=== PATIENT | female | born 1965 | race Caucasian/White ===

== ENCOUNTER 2017-08-25 15:20 | Emergency (ER) | payer SELFPAY ==
[~2017-08-25] VITALS: Ht 167.6 cm; Wt 43.0 kg
[2017-08-25] MEDS ORDERED: PERCOCET 5/31 TABLET PO (17:50)
[2017-08-25] MEDS ORDERED: MOTRIN600 MG PO (17:50)
[2017-08-25 17:57] VITALS: BP 144/77
== END 2017-08-25 17:58 | disposition home or self-care (01) ==
LOC: EXP 15:20 → EME 15:20 → EXP 17:58
DX: S40.011A Contusion of right shoulder, initial encounter (principal); W01.0XXA Fall on same level from slipping, tripping and stumbling without subsequent striking against object, initial encounter; F17.200 Nicotine dependence, unspecified, uncomplicated; Z87.39 Personal history of other diseases of the musculoskeletal system and connective tissue; Z85.028 Personal history of other malignant neoplasm of stomach; Z88.2 Allergy status to sulfonamides
CPT/HCPCS: 73030; 99281; 99284

== ENCOUNTER 2017-09-01 17:07 | Emergency (ER) | payer SELFPAY ==
[~2017-09-01] VITALS: Ht 167.6 cm; Wt 43.5 kg
[~2017-09-01 17:07] MED LIST: MOTRIN600 MG PO; PERCOCET 5/31 TABLET PO
[2017-09-01] MEDS ORDERED: PERCOCET 5/31 TABLET PO (19:36)
[2017-09-01 19:42] VITALS: BP 141/73
== END 2017-09-01 19:42 | disposition home or self-care (01) ==
LOC: EME 17:07
DX: M25.511 Pain in right shoulder (principal); M25.411 Effusion, right shoulder; M79.89 Other specified soft tissue disorders; R11.0 Nausea; Z85.028 Personal history of other malignant neoplasm of stomach; F17.200 Nicotine dependence, unspecified, uncomplicated
CPT/HCPCS: 73030

== ENCOUNTER 2017-09-16 10:10 | Emergency (ER) | payer SELFPAY ==
[~2017-09-16] VITALS: Ht 167.6 cm; Wt 42.1 kg
[2017-09-16 10:22] VITALS: BP 154/79
[2017-09-16] MEDS ORDERED: NORCO 5/3251 TABLET PO (12:28)
== END 2017-09-16 13:09 | disposition home or self-care (01) ==
LOC: EME 10:10
PROC: 0RSJXZZ Reposition Right Shoulder Joint, External Approach (ICD-10-PCS; principal; 2017-09-16)
DX: M25.311 Other instability, right shoulder (principal); M79.89 Other specified soft tissue disorders; Z88.2 Allergy status to sulfonamides; F17.200 Nicotine dependence, unspecified, uncomplicated
CPT/HCPCS: 73030; 99281; 99284; J2060